=== PATIENT | female | born 1945 | race Caucasian/White ===

== ENCOUNTER 2016-12-18 12:03 | Emergency (ER) | payer OTHER, MEDICARE ==
[2016-12-18] MEDS ORDERED: BACITRACIN ZINC OINTMENT 15 GM TP ONE (12:07)
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
[2016-12-18 14:18] VITALS: BP 184/93
== END 2016-12-18 14:47 | disposition home or self-care (01) ==
LOC: ER 12:03
DX: S50.312A Abrasion of left elbow, initial encounter (principal); S50.812A Abrasion of left forearm, initial encounter; V03.00XA Pedestrian on foot injured in collision with car, pick-up truck or van in nontraffic accident, initial encounter; Y93.01 Activity, walking, marching and hiking; Y92.481 Parking lot as the place of occurrence of the external cause; R00.0 Tachycardia, unspecified; I10 Essential (primary) hypertension; Z79.899 Other long term (current) drug therapy
CPT/HCPCS: 99283; 73070; J3490